=== PATIENT | female | born 1990 | race Caucasian/White ===

== ENCOUNTER 2018-10-04 13:09 | Emergency (ER) | payer OTHER ==
[~2018-10-04] VITALS: Ht 170.2 cm; Wt 68.0 kg
[2018-10-05] MEDS ORDERED: PROTONIX40 MG (16:16)
== END 2018-10-04 15:34 | disposition home or self-care (01) ==
LOC: ER 13:09 → EDBD 13:29 → ER 13:29
DX: K52.9 Noninfective gastroenteritis and colitis, unspecified (principal)

== ENCOUNTER 2018-10-05 15:28 | Emergency (ER) | payer OTHER ==
[~2018-10-05] VITALS: Ht 170.2 cm; Wt 68.0 kg
[2018-10-05] MEDS ORDERED: PROTONIX40 MG (16:16)
== END 2018-10-05 18:04 | disposition home or self-care (01) ==
LOC: ER 15:28
DX: J02.8 Acute pharyngitis due to other specified organisms (principal)

== ENCOUNTER 2020-02-04 05:10 | Emergency (ER) | payer OTHER ==
[~2020-02-04] VITALS: Ht 170.2 cm; Wt 69.4 kg
[~2020-02-04 05:10] MED LIST: PROTONIX40 MG
[2020-02-04] MEDS ORDERED: PRENATABS RX T1 EACH (05:36)
== END 2020-02-04 10:50 ==
LOC: ER 05:10
DX: O26.891 Other specified pregnancy related conditions, first trimester (principal); R10.2 Pelvic and perineal pain; Z3A.01 Less than 8 weeks gestation of pregnancy

== ENCOUNTER 2020-11-29 15:07 | Inpatient (IN) | payer OTHER ==
[~2020-11-29] VITALS: Ht 170.2 cm; Wt 76.7 kg
[~2020-11-29 15:07] MED LIST changes: +PRENATABS RX T1 EACH
== END 2020-12-06 18:15 | disposition home or self-care (01) | DRG 418 ==
LOC: ER 15:07 → SURH 11-30 10:53 → MEDI 11-30 10:53 → SEC-K 11-30 13:53 → SURH 12-01 10:24
PROVIDERS: Surgery; ADMIT Internal Medicine; ATTEND Internal Medicine
PROC: 0WQF4ZZ Repair Abdominal Wall, Percutaneous Endoscopic Approach (ICD-10-PCS; 2020-12-05)
PROC: 0FT44ZZ Resection of Gallbladder, Percutaneous Endoscopic Approach (ICD-10-PCS; principal; 2020-12-05 20:00)
DX: K85.10 Biliary acute pancreatitis without necrosis or infection (principal); N39.0 Urinary tract infection, site not specified; Z20.822 Contact with and (suspected) exposure to COVID-19; K80.80 Other cholelithiasis without obstruction; K42.9 Umbilical hernia without obstruction or gangrene

== ENCOUNTER 2023-12-07 10:04 | Emergency (ER) | payer OTHER ==
[~2023-12-07] VITALS: Ht 170.2 cm; Wt 83.9 kg
[2023-12-07] MEDS ORDERED: DEXAMETHASONE SODIUM PHOSPHATE 4 MG/ML VIAL IM STA (11:25)
[2023-12-07] MEDS ORDERED: DEXAMETHASONE SODIUM PHOSPHATE 4 MG/ML VIAL ONE (11:28)
== END 2023-12-07 12:41 | disposition home or self-care (01) ==
LOC: ER 10:06
DX: J32.9 Chronic sinusitis, unspecified (principal); R42 Dizziness and giddiness; Z91.013 Allergy to seafood